=== PATIENT | female | born 1940 | race Caucasian/White ===

== ENCOUNTER 2019-09-03 07:15 | Outpatient (CLI) | payer MEDICARE, SELFPAY ==
[2019-09-03 07:51] LABS: Add Urine Microscopic? YES; Appearance Urine Sl Cloudy (Clear); Bilirubin Urine Negative (Negative); Blood Urine Negative (Negative); Color Urine Yellow (Yellow); Glucose Urine UA Negative (Negative); Ketones Urine Negative (Negative); Leukocyte Esterase Ur 1+ (Negative); Nitrate Urine Positive (Negative); Protein Urine Negative (Negative); Specific Grav Ur 1.025 (1.010-1.020); Urobilinogen Urine 0.2 mg/dL (0.2-1.0); pH Urine 5.5 (5.0-8.0)
[2019-09-03 07:55] LABS: Bacteria Urine 3+ /hpf; RBC Urine 0-2 /hpf (0-2); Squamous Epithelial Cell Urine Rare /hpf (Few)
[2019-09-03 08:04] LABS: Hemoglobin A1C 8.1 % (<5.7)
== END 2019-09-03 07:16 | disposition home or self-care (01) ==
LOC: CHSLAB 07:19
PROVIDERS: PCP Internal Medicine; Visit Provider Internal Medicine
DX: R82.81 Pyuria (principal); E11.9 Type 2 diabetes mellitus without complications
CPT/HCPCS: 36415; 81001; 83036

== ENCOUNTER 2020-02-27 08:22 | Outpatient (CLI) | payer MEDICARE, SELFPAY ==
[2020-02-27 08:38] LABS: Add Urine Microscopic? YES; Appearance Urine Clear (Clear); Basophils Absolute Auto 0.02 K/mm3 (0.00-0.10); Basophils Percent Auto 0.5 % (0.0-1.0); Bilirubin Urine Negative (Negative); Blood Urine Negative (Negative); Color Urine Yellow (Yellow); Eosinophils Absolute Auto 0.09 K/mm3 (0.02-0.50); Eosinophils Percent Auto 2.2 % (1.0-6.0); Glucose Urine UA Negative (Negative); Hematocrit 42.6 % (35.0-42.0); Hemoglobin 13.8 g/dL (11.7-13.8); Immature Granulocyte Absolute 0.02 K/mm3 (0.00-0.00); Immature Granulocyte Percent A 0.5 % (0.0-0.0); Ketones Urine Trace (Negative); Leukocyte Esterase Ur 2+ (Negative); Lymphocytes Absolute Auto 1.31 K/mm3 (1.10-4.50); Lymphocytes Percent Auto 31.8 % (18.0-42.0); Mean Corpuscular HGB Conc 32.4 g/dL (32.0-36.0); Mean Corpuscular Hemoglobin 29.6 pg (27.0-31.0); Mean Corpuscular Volume 91.2 fL (78.0-102.0); Mean Platelet Volume 9.6 fl (9.2-11.8); Monocytes Absolute Auto 0.48 K/mm3 (0.10-0.90); Monocytes Percent Auto 11.7 % (2.0-11.0); Neutrophils Absolute Auto 2.2 K/mm3 (1.7-7.2); Neutrophils Percent Auto 53.3 % (50.0-70.0); Nitrate Urine Negative (Negative); Platelet Count Result 186 K/mm3 (150-420); Protein Urine Negative (Negative); Red Blood Count 4.67 M/mm3 (4.20-5.40); Red Cell Distribution Width 11.9 % (11.6-14.4); Specific Grav Ur 1.025 (1.010-1.020); Urobilinogen Urine 0.2 mg/dL (0.2-1.0); White Blood Count 4.1 K/mm3 (4.8-10.8)
[2020-02-27 08:44] LABS: Bacteria Urine 2+ /hpf; RBC Urine 0-2 /hpf (0-2); Squamous Epithelial Cell Urine Few /hpf (Few)
[2020-02-27 08:52] LABS: MALB Creatinine Ratio 17.3 mg/g (0-30); Microalbumin Urine Random 18.1 mg/L
[2020-02-27 10:47] LABS: Alanine Aminotransferase 29 U/L (14-59); Albumin Level 4.2 g/dL (3.4-5.0); Alkaline Phosphatase 101 U/L (46-116); Anion Gap 7 mmol/L (8-16); Aspartate Amino Transferase 19 U/L (15-37); Bilirubin,Total 0.6 mg/dL (0.00-1.00); Blood Urea Nitrogen 17 mg/dL (7-18); Calcium 9.4 mg/dL (8.5-10.1); Carbon Dioxide 29 mmol/L (21-32); Chloride 101 mmol/L (98-108); Cholesterol 216 mg/dL (0-200); Estimated Glomerular Filt Rate > 60; Glucose 148 mg/dL (70-99); HDL Direct 50 mg/dL (40-60); LDL Cholesterol Calculated 148 mg/dL (<130); Osmolality Calculated 288 mOsm/kg (285-295); Potassium 4.1 mmol/L (3.5-5.1); Sodium 137 mmol/L (136-145); Total Protein 7.5 g/dL (6.4-8.2); Triglycerides 88 mg/dL (0-150)
== END 2020-02-27 08:23 | disposition home or self-care (01) ==
LOC: CHSLAB 08:24
PROVIDERS: PCP Internal Medicine; Visit Provider Internal Medicine
DX: E78.5 Hyperlipidemia, unspecified (principal); I10 Essential (primary) hypertension; E11.9 Type 2 diabetes mellitus without complications
CPT/HCPCS: 36415; 80053; 80061; 81001; 82043; 83036; 85025

== ENCOUNTER 2020-08-31 08:42 | Outpatient (CLI) | payer MEDICARE, SELFPAY ==
[2020-08-31 09:08] LABS: Basophils Absolute Auto 0.04 K/mm3 (0.00-0.10); Basophils Percent Auto 0.9 % (0.0-1.0); Eosinophils Absolute Auto 0.15 K/mm3 (0.02-0.50); Eosinophils Percent Auto 3.4 % (1.0-6.0); Hematocrit 40.8 % (35.0-42.0); Immature Granulocyte Absolute 0.01 K/mm3 (0.00-0.00); Immature Granulocyte Percent A 0.2 % (0.0-0.0); Lymphocytes Absolute Auto 1.06 K/mm3 (1.10-4.50); Lymphocytes Percent Auto 23.9 % (18.0-42.0); Mean Corpuscular HGB Conc 31.9 g/dL (32.0-36.0); Mean Corpuscular Hemoglobin 28.9 pg (27.0-31.0); Mean Corpuscular Volume 90.7 fL (78.0-102.0); Mean Platelet Volume 9.6 fl (9.2-11.8); Neutrophils Absolute Auto 2.8 K/mm3 (1.7-7.2); Neutrophils Percent Auto 62.6 % (50.0-70.0); Platelet Count Result 198 K/mm3 (150-420); Red Cell Distribution Width 11.8 % (11.6-14.4); White Blood Count 4.4 K/mm3 (4.8-10.8)
[2020-08-31 10:19] LABS: Alanine Aminotransferase 33 U/L (14-59); Albumin Level 3.9 g/dL (3.4-5.0); Alkaline Phosphatase 106 U/L (46-116); Anion Gap 6 mmol/L (8-16); Aspartate Amino Transferase 18 U/L (15-37); Bilirubin,Total 0.7 mg/dL (0.00-1.00); Blood Urea Nitrogen 20 mg/dL (7-18); Calcium 9.1 mg/dL (8.5-10.1); Carbon Dioxide 31 mmol/L (21-32); Chloride 103 mmol/L (98-108); Cholesterol 207 mg/dL (0-200); Estimated Glomerular Filt Rate 56; Glucose 166 mg/dL (70-99); HDL Direct 56 mg/dL (40-60); LDL Cholesterol Calculated 130 mg/dL (<130); Osmolality Calculated 296 mOsm/kg (285-295); Potassium 4.4 mmol/L (3.5-5.1); Sodium 140 mmol/L (136-145); Triglycerides 103 mg/dL (0-150)
== END 2020-08-31 08:43 | disposition home or self-care (01) ==
LOC: CHSLAB 08:44
PROVIDERS: PCP Internal Medicine; Visit Provider Internal Medicine
DX: E78.5 Hyperlipidemia, unspecified (principal); I10 Essential (primary) hypertension; E11.9 Type 2 diabetes mellitus without complications
CPT/HCPCS: 36415; 80053; 80061; 83036; 85025

== ENCOUNTER 2021-03-08 08:32 | Outpatient (CLI) | payer MEDICARE, SELFPAY ==
[2021-03-08 08:50] LABS: Basophils Absolute Auto 0.06 K/mm3 (0.00-0.10); Basophils Percent Auto 1.3 % (0.0-1.0); Eosinophils Absolute Auto 0.15 K/mm3 (0.02-0.50); Eosinophils Percent Auto 3.2 % (1.0-6.0); Hematocrit 40.2 % (35.0-42.0); Hemoglobin 13.1 g/dL (11.7-13.8); Immature Granulocyte Absolute 0.01 K/mm3 (0.00-0.00); Immature Granulocyte Percent A 0.2 % (0.0-0.0); Lymphocytes Absolute Auto 1.21 K/mm3 (1.10-4.50); Lymphocytes Percent Auto 26.1 % (18.0-42.0); Mean Corpuscular HGB Conc 32.6 g/dL (32.0-36.0); Mean Corpuscular Hemoglobin 29.1 pg (27.0-31.0); Mean Corpuscular Volume 89.3 fL (78.0-102.0); Mean Platelet Volume 9.6 fl (9.2-11.8); Monocytes Absolute Auto 0.54 K/mm3 (0.10-0.90); Monocytes Percent Auto 11.6 % (2.0-11.0); Neutrophils Absolute Auto 2.7 K/mm3 (1.7-7.2); Neutrophils Percent Auto 57.6 % (50.0-70.0); Platelet Count Result 177 K/mm3 (150-420); Red Cell Distribution Width 11.9 % (11.6-14.4); White Blood Count 4.6 K/mm3 (4.8-10.8)
[2021-03-08 09:14] LABS: Creatinine Urine 112.66 mg/dL (40-278); MALB Creatinine Ratio 15.9 mg/g (0-30)
[2021-03-08 09:15] LABS: Hemoglobin A1C 7.7 % (<5.7)
[2021-03-08 10:56] LABS: Alanine Aminotransferase 30 U/L (14-59); Albumin Level 3.8 g/dL (3.4-5.0); Alkaline Phosphatase 111 U/L (46-116); Anion Gap 10 mmol/L (8-16); Aspartate Amino Transferase 19 U/L (15-37); Bilirubin,Total 0.6 mg/dL (0.00-1.00); Blood Urea Nitrogen 20 mg/dL (7-18); Calcium 8.9 mg/dL (8.5-10.1); Carbon Dioxide 29 mmol/L (21-32); Chloride 101 mmol/L (98-108); Cholesterol 187 mg/dL (0-200); Estimated Glomerular Filt Rate > 60; Glucose 170 mg/dL (70-99); HDL Direct 50 mg/dL (40-60); LDL Cholesterol Calculated 115 mg/dL (<130); Osmolality Calculated 296 mOsm/kg (285-295); Potassium 4.2 mmol/L (3.5-5.1); Sodium 140 mmol/L (136-145); Triglycerides 109 mg/dL (0-150)
== END 2021-03-08 08:33 | disposition home or self-care (01) ==
LOC: CHSLAB 08:34
PROVIDERS: PCP Internal Medicine; Visit Provider Internal Medicine
DX: E11.9 Type 2 diabetes mellitus without complications (principal); I10 Essential (primary) hypertension; E78.5 Hyperlipidemia, unspecified
CPT/HCPCS: 36415; 80053; 80061; 82043; 83036; 84443; 85025

== ENCOUNTER 2021-09-13 07:12 | Outpatient (CLI) | payer MEDICARE, SELFPAY ==
[2021-09-13 07:36] LABS: Basophils Absolute Auto 0.04 K/mm3 (0.00-0.10); Eosinophils Absolute Auto 0.08 K/mm3 (0.02-0.50); Eosinophils Percent Auto 1.9 % (1.0-6.0); Hematocrit 40.6 % (35.0-42.0); Hemoglobin 12.9 g/dL (11.7-13.8); Immature Granulocyte Absolute 0.01 K/mm3 (0.00-0.00); Immature Granulocyte Percent A 0.2 % (0.0-0.0); Lymphocytes Absolute Auto 1.46 K/mm3 (1.10-4.50); Lymphocytes Percent Auto 34.7 % (18.0-42.0); Mean Corpuscular HGB Conc 31.8 g/dL (32.0-36.0); Mean Corpuscular Hemoglobin 29.2 pg (27.0-31.0); Mean Corpuscular Volume 91.9 fL (78.0-102.0); Mean Platelet Volume 9.6 fl (9.2-11.8); Monocytes Absolute Auto 0.45 K/mm3 (0.10-0.90); Monocytes Percent Auto 10.7 % (2.0-11.0); Neutrophils Absolute Auto 2.2 K/mm3 (1.7-7.2); Neutrophils Percent Auto 51.5 % (50.0-70.0); Platelet Count Result 182 K/mm3 (150-420); Red Blood Count 4.42 M/mm3 (4.20-5.40); Red Cell Distribution Width 11.9 % (11.6-14.4); White Blood Count 4.2 K/mm3 (4.8-10.8)
[2021-09-13 08:02] LABS: Hemoglobin A1C 7.9 % (<5.7)
[2021-09-13 08:11] LABS: Alanine Aminotransferase 22 U/L (14-59); Albumin Level 3.6 g/dL (3.4-5.0); Alkaline Phosphatase 96 U/L (46-116); Anion Gap 8 mmol/L (8-16); Aspartate Amino Transferase 15 U/L (15-37); Bilirubin,Total 0.6 mg/dL (0.00-1.00); Blood Urea Nitrogen 21 mg/dL (7-18); Calcium 9.2 mg/dL (8.5-10.1); Carbon Dioxide 28 mmol/L (21-32); Chloride 102 mmol/L (98-108); Cholesterol 237 mg/dL (0-200); Estimated Glomerular Filt Rate > 60; Glucose 165 mg/dL (70-99); HDL Direct 52 mg/dL (40-60); LDL Cholesterol Calculated 161 mg/dL (<130); Osmolality Calculated 293 mOsm/kg (285-295); Potassium 4.3 mmol/L (3.5-5.1); Sodium 138 mmol/L (136-145); Total Protein 6.9 g/dL (6.4-8.2); Triglycerides 120 mg/dL (0-150)
== END 2021-09-13 07:13 | disposition home or self-care (01) ==
LOC: CHSLAB 07:14
PROVIDERS: PCP Internal Medicine; Visit Provider Internal Medicine
DX: E78.5 Hyperlipidemia, unspecified (principal); I10 Essential (primary) hypertension; E11.9 Type 2 diabetes mellitus without complications
CPT/HCPCS: 36415; 80053; 80061; 83036; 85025

== ENCOUNTER 2022-03-22 07:07 | Outpatient (CLI) | payer MEDICARE, SELFPAY ==
[2022-03-22 07:27] LABS: Appearance Urine Slightly Cloudy (Clear); Bilirubin Urine Negative (Negative); Color Urine Light Yellow (Yellow); Glucose Urine UA Negative (Negative); Ketones Urine 1+ (Negative); Leukocyte Esterase Ur 2+ (Negative); Nitrate Urine Positive (Negative); Protein Urine Negative (Negative); Specific Grav Ur >= 1.030 (1.010-1.020); Urobilinogen Urine 0.2 mg/dL (0.2-1.0); pH Urine 5.5 (5.0-8.0)
[2022-03-22 07:32] LABS: Add Urine Microscopic? YES; Bacteria Urine 2+ /hpf; Blood Urine Trace-Intact (Negative); RBC Urine 0-2 /hpf (0-2); Squamous Epithelial Cell Urine Rare /hpf (Few); WBC Urine 31-50 /hpf (0-3)
[2022-03-22 07:34] LABS: Creatinine Urine 142.37 mg/dL (40-278); Microalbumin Urine Random 28.5 mg/L
[2022-03-22 07:36] LABS: Hemoglobin A1C 7.7 % (<5.7)
[2022-03-22 07:42] LABS: Alanine Aminotransferase 22 U/L (14-59); Alkaline Phosphatase 82 U/L (46-116); Anion Gap 6 mmol/L (8-16); Aspartate Amino Transferase 20 U/L (15-37); Bilirubin,Total 0.7 mg/dL (0.00-1.00); Blood Urea Nitrogen 17 mg/dL (7-18); Calcium 9.3 mg/dL (8.5-10.1); Carbon Dioxide 30 mmol/L (21-32); Chloride 102 mmol/L (98-108); Cholesterol 198 mg/dL (0-200); Estimated Glomerular Filt Rate > 60; Glucose 165 mg/dL (70-99); HDL Direct 52 mg/dL (40-60); LDL Cholesterol Calculated 120 mg/dL (<130); Osmolality Calculated 291 mOsm/kg (285-295); Potassium 4.1 mmol/L (3.5-5.1); Sodium 138 mmol/L (136-145); Total Protein 7.6 g/dL (6.4-8.2); Triglycerides 128 mg/dL (0-150)
== END 2022-03-22 07:08 | disposition home or self-care (01) ==
LOC: CHSLAB 07:10
PROVIDERS: PCP Internal Medicine; Visit Provider Internal Medicine
DX: E11.9 Type 2 diabetes mellitus without complications (principal); I10 Essential (primary) hypertension
CPT/HCPCS: 36415; 80053; 80061; 81001; 82043; 83036

== ENCOUNTER 2022-03-23 11:38 | Outpatient (CLI) | payer MEDICARE, SELFPAY ==
[2022-03-23 11:50] LABS: Appearance Urine Clear (Clear); Bilirubin Urine Negative (Negative); Blood Urine Negative (Negative); Glucose Urine UA Negative (Negative); Ketones Urine Negative (Negative); Leukocyte Esterase Ur 1+ (Negative); Nitrate Urine Negative (Negative); Protein Urine Negative (Negative); Specific Grav Ur <= 1.005 (1.010-1.020); Urobilinogen Urine 0.2 mg/dL (0.2-1.0)
[2022-03-23 12:08] LABS: Add Urine Microscopic? YES; Color Urine Light Yellow (Yellow)
[2022-03-23 12:09] LABS: Bacteria Urine Trace /hpf; RBC Urine None seen /hpf (0-2); Squamous Epithelial Cell Urine Rare /hpf (Few); WBC Urine 0-3 /hpf (0-3)
== END 2022-03-23 11:39 | disposition home or self-care (01) ==
LOC: CHSLAB 11:41
PROVIDERS: PCP Internal Medicine; Visit Provider Internal Medicine
DX: N39.0 Urinary tract infection, site not specified (principal)
CPT/HCPCS: 81001; 87086; 87088

== ENCOUNTER 2022-09-16 07:21 | Outpatient (CLI) | payer MEDICARE, SELFPAY ==
[2022-09-16 07:41] LABS: Basophils Absolute Auto 0.07 K/mm3 (0.00-0.10); Basophils Percent Auto 1.4 % (0.0-1.0); Eosinophils Absolute Auto 0.15 K/mm3 (0.02-0.50); Hematocrit 41.5 % (35.0-42.0); Hemoglobin 13.8 g/dL (11.7-13.8); Immature Granulocyte Absolute 0.01 K/mm3 (0.00-0.00); Immature Granulocyte Percent A 0.2 % (0.0-0.0); Lymphocytes Absolute Auto 1.47 K/mm3 (1.10-4.50); Lymphocytes Percent Auto 29.1 % (18.0-42.0); Mean Corpuscular HGB Conc 33.3 g/dL (32.0-36.0); Mean Corpuscular Hemoglobin 29.6 pg (27.0-31.0); Mean Corpuscular Volume 88.9 fL (78.0-102.0); Mean Platelet Volume 9.7 fl (9.2-11.8); Monocytes Absolute Auto 0.58 K/mm3 (0.10-0.90); Monocytes Percent Auto 11.5 % (2.0-11.0); Neutrophils Absolute Auto 2.8 K/mm3 (1.7-7.2); Neutrophils Percent Auto 54.8 % (50.0-70.0); Platelet Count Result 186 K/mm3 (150-420); Red Blood Count 4.67 M/mm3 (4.20-5.40); Red Cell Distribution Width 11.5 % (11.6-14.4); White Blood Count 5.1 K/mm3 (4.8-10.8)
[2022-09-16 07:43] LABS: Appearance Urine Clear (Clear); Bilirubin Urine Negative (Negative); Blood Urine Negative (Negative); Color Urine Light Yellow (Yellow); Glucose Urine UA Negative (Negative); Ketones Urine Negative (Negative); Leukocyte Esterase Ur 3+ (Negative); Nitrate Urine Positive (Negative); Protein Urine Negative (Negative); Specific Grav Ur <= 1.005 (1.010-1.020); Urobilinogen Urine 0.2 mg/dL (0.2-1.0)
[2022-09-16 07:51] LABS: Hemoglobin A1C 9.9 % (<5.7)
[2022-09-16 07:52] LABS: Add Urine Microscopic? NO; Bacteria Urine 2+ /hpf; RBC Urine None seen /hpf (0-2); Squamous Epithelial Cell Urine Few /hpf (Few); WBC Urine 21-30 /hpf (0-3)
[2022-09-16 08:02] LABS: Creatinine Urine 55.28 mg/dL (40-278); MALB Creatinine Ratio 31.8 mg/g (0-30); Microalbumin Urine Random 17.6 mg/L
[2022-09-16 08:50] LABS: Alanine Aminotransferase 30 U/L (14-59); Albumin Level 3.8 g/dL (3.4-5.0); Alkaline Phosphatase 106 U/L (46-116); Anion Gap 7 mmol/L (8-16); Aspartate Amino Transferase 25 U/L (15-37); Bilirubin,Total 0.6 mg/dL (0.00-1.00); Blood Urea Nitrogen 12 mg/dL (7-18); Calcium 9.6 mg/dL (8.5-10.1); Carbon Dioxide 32 mmol/L (21-32); Chloride 100 mmol/L (98-108); Cholesterol 189 mg/dL (0-200); Estimated Glomerular Filt Rate > 60; Glucose 212 mg/dL (70-99); HDL Direct 51 mg/dL (40-60); LDL Cholesterol Calculated 115 mg/dL (<130); Osmolality Calculated 293 mOsm/kg (285-295); Potassium 4.7 mmol/L (3.5-5.1); Sodium 139 mmol/L (136-145); Thyroid Stimulating Hormone 2.88 uIU/mL (0.36-3.74); Total Protein 7.4 g/dL (6.4-8.2); Triglycerides 117 mg/dL (0-150)
== END 2022-09-16 07:22 | disposition home or self-care (01) ==
LOC: CHSLAB 07:23
PROVIDERS: PCP Internal Medicine; Visit Provider Internal Medicine
DX: E11.9 Type 2 diabetes mellitus without complications (principal); I10 Essential (primary) hypertension; E78.5 Hyperlipidemia, unspecified
CPT/HCPCS: 36415; 80053; 80061; 81003; 82043; 83036; 84443; 85025

== ENCOUNTER 2022-12-16 07:47 | Outpatient (CLI) | payer MEDICARE, SELFPAY ==
[2022-12-16 08:33] LABS: Appearance Urine Clear (Clear); Bilirubin Urine Negative (Negative); Blood Urine Negative (Negative); Color Urine Light Yellow (Yellow); Glucose Urine UA Negative (Negative); Ketones Urine Negative (Negative); Leukocyte Esterase Ur 2+ (Negative); Nitrate Urine Negative (Negative); Protein Urine Negative (Negative); Specific Grav Ur <= 1.005 (1.010-1.020); Urobilinogen Urine 0.2 mg/dL (0.2-1.0)
[2022-12-16 08:38] LABS: Hemoglobin A1C 8.8 % (<5.7)
[2022-12-16 08:54] LABS: Add Urine Microscopic? YES; RBC Urine 0-2 /hpf (0-2); Squamous Epithelial Cell Urine Few /hpf (Few)
[2022-12-16 08:55] LABS: Bacteria Urine Trace /hpf
== END 2022-12-16 07:48 | disposition home or self-care (01) ==
LOC: CHSLAB 07:50
PROVIDERS: PCP Internal Medicine; Visit Provider Internal Medicine
DX: E11.9 Type 2 diabetes mellitus without complications (principal); R30.0 Dysuria
CPT/HCPCS: 36415; 81001; 83036; 87086; 87088

== ENCOUNTER 2023-03-17 07:40 | Outpatient (CLI) | payer MEDICARE, SELFPAY ==
[2023-03-17 08:16] LABS: Hemoglobin A1C 10.3 % (<5.7)
[2023-03-17 09:06] LABS: Alanine Aminotransferase 27 U/L (14-59); Albumin Level 3.9 g/dL (3.4-5.0); Alkaline Phosphatase 99 U/L (46-116); Anion Gap 11 mmol/L (8-16); Aspartate Amino Transferase 16 U/L (15-37); Bilirubin,Total 0.8 mg/dL (0.00-1.00); Blood Urea Nitrogen 14 mg/dL (7-18); Carbon Dioxide 27 mmol/L (21-32); Chloride 100 mmol/L (98-108); Cholesterol 216 mg/dL (0-200); Estimated Glomerular Filt Rate 58; Glucose 246 mg/dL (70-99); HDL Direct 49 mg/dL (40-60); Osmolality Calculated 294 mOsm/kg (285-295); Potassium 4.5 mmol/L (3.5-5.1); Sodium 138 mmol/L (136-145); Total Protein 7.4 g/dL (6.4-8.2)
[2023-03-17 10:01] LABS: LDL Cholesterol Calculated 137 mg/dL (<130); Triglycerides 152 mg/dL (0-150)
== END 2023-03-17 07:41 | disposition home or self-care (01) ==
LOC: CHSLAB 07:43
PROVIDERS: PCP Internal Medicine; Visit Provider Internal Medicine
DX: E11.8 Type 2 diabetes mellitus with unspecified complications (principal); E78.5 Hyperlipidemia, unspecified; I10 Essential (primary) hypertension
CPT/HCPCS: 36415; 80053; 80061; 83036

== ENCOUNTER 2023-09-14 09:06 | Outpatient (CLI) | payer MEDICARE, SELFPAY ==
[2023-09-14 09:28] LABS: Appearance Urine Clear (Clear); Basophils Absolute Auto 0.05 K/mm3 (0.00-0.10); Basophils Percent Auto 1.1 % (0.0-1.0); Bilirubin Urine Negative (Negative); Blood Urine Negative (Negative); Color Urine Light Yellow (Yellow); Eosinophils Absolute Auto 0.09 K/mm3 (0.02-0.50); Glucose Urine UA Negative (Negative); Hematocrit 41.7 % (35.0-42.0); Hemoglobin 13.6 g/dL (11.7-13.8); Immature Granulocyte Absolute 0.02 K/mm3 (0.00-0.00); Immature Granulocyte Percent A 0.4 % (0.0-0.0); Ketones Urine Negative (Negative); Leukocyte Esterase Ur 1+ (Negative); Lymphocytes Absolute Auto 1.18 K/mm3 (1.10-4.50); Mean Corpuscular HGB Conc 32.6 g/dL (32-36); Mean Corpuscular Hemoglobin 29.2 pg (27.0-31.0); Mean Corpuscular Volume 89.5 fL (78.0-102.0); Mean Platelet Volume 9.3 fl (9.2-11.8); Monocytes Absolute Auto 0.45 K/mm3 (0.10-0.90); Monocytes Percent Auto 9.9 % (2.0-11.0); Neutrophils Absolute Auto 2.75 K/mm3 (1.70-7.20); Neutrophils Percent Auto 60.6 % (50.0-70.0); Nitrate Urine Negative (Negative); Platelet Count Result 189 K/mm3 (150-420); Protein Urine Negative (Negative); Red Blood Count 4.66 M/mm3 (4.20-5.40); Red Cell Distribution Width 11.7 % (11.6-14.4); Specific Grav Ur <= 1.005 (1.010-1.020); Urobilinogen Urine 0.2 mg/dL (0.2-1.0); White Blood Count 4.5 K/mm3 (4.8-10.8)
[2023-09-14 09:38] LABS: Creatinine Urine 18.92 mg/dL (40-278); MALB Creatinine Ratio 68.7 mg/g (0-30); Microalbumin Urine Random < 13.0 mg/L
[2023-09-14 09:40] LABS: Hemoglobin A1C 8.9 % (<5.7)
[2023-09-14 10:06] LABS: Add Urine Microscopic? YES; Bacteria Urine Rare /hpf; RBC Urine None seen /hpf (0-2); Squamous Epithelial Cell Urine Few /hpf (Few)
[2023-09-14 10:40] LABS: Alanine Aminotransferase 25 U/L (14-59); Albumin Level 3.7 g/dL (3.4-5.0); Alkaline Phosphatase 93 U/L (46-116); Anion Gap 7 mmol/L (8-16); Aspartate Amino Transferase 17 U/L (15-37); Bilirubin,Total 0.5 mg/dL (0.00-1.00); Blood Urea Nitrogen 15 mg/dL (7-18); Calcium 8.9 mg/dL (8.5-10.1); Carbon Dioxide 30 mmol/L (21-32); Chloride 99 mmol/L (98-108); Cholesterol 199 mg/dL (0-200); Estimated Glomerular Filt Rate > 60; Glucose 178 mg/dL (70-99); HDL Direct 58 mg/dL (40-60); LDL Cholesterol Calculated 121 mg/dL (<130); Osmolality Calculated 286 mOsm/kg (285-295); Potassium 4.2 mmol/L (3.5-5.1); Sodium 136 mmol/L (136-145); Thyroid Stimulating Hormone 1.86 uIU/mL (0.36-3.74); Total Protein 6.9 g/dL (6.4-8.2); Triglycerides 99 mg/dL (0-150)
== END 2023-09-14 09:07 | disposition home or self-care (01) ==
LOC: CHSLAB 09:08
PROVIDERS: PCP Internal Medicine; Visit Provider Internal Medicine
DX: E11.9 Type 2 diabetes mellitus without complications (principal); E78.5 Hyperlipidemia, unspecified; I10 Essential (primary) hypertension
CPT/HCPCS: 36415; 80053; 80061; 81001; 82043; 83036; 84443; 85025

== ENCOUNTER 2024-03-15 09:06 | Outpatient (CLI) | payer MEDICARE, SELFPAY ==
[2024-03-15 09:34] LABS: Hemoglobin A1C 7.1 % (<5.7)
[2024-03-15 09:37] LABS: Creatinine Urine 135.95 mg/dL (40-278); MALB Creatinine Ratio 72.5 mg/g (0-30); Microalbumin Urine Random 98.6 mg/L
[2024-03-15 10:33] LABS: Alanine Aminotransferase 21 U/L (14-59); Albumin Level 3.5 g/dL (3.4-5.0); Alkaline Phosphatase 83 U/L (46-116); Anion Gap 3 mmol/L (4-12); Aspartate Amino Transferase 17 U/L (15-37); Bilirubin,Total 0.6 mg/dL (0.00-1.00); Blood Urea Nitrogen 21 mg/dL (7-18); Calcium 9.4 mg/dL (8.5-10.1); Carbon Dioxide 34 mmol/L (21-32); Chloride 102 mmol/L (98-108); Cholesterol 122 mg/dL (0-200); Estimated Glomerular Filt Rate 52; Free T4 Free Thyroxine 0.97 ng/dL (0.76-1.46); Glucose 173 mg/dL (70-99); HDL Direct 55 mg/dL (40-60); LDL Cholesterol Calculated 48 mg/dL (<130); Osmolality Calculated 295 mOsm/kg (285-295); Potassium 4.1 mmol/L (3.5-5.1); Sodium 139 mmol/L (136-145); Thyroid Stimulating Hormone 2.03 uIU/mL (0.36-3.74); Total Protein 6.6 g/dL (6.4-8.2); Triglycerides 94 mg/dL (0-150); Vitamin B12 406 pg/mL (193-986)
== END 2024-03-15 09:07 | disposition home or self-care (01) ==
LOC: CHSLAB 09:08
PROVIDERS: PCP Internal Medicine; Visit Provider Internal Medicine Endocrinology, Diabetes & Metabolism
DX: E78.5 Hyperlipidemia, unspecified (principal); E11.65 Type 2 diabetes mellitus with hyperglycemia; E04.1 Nontoxic single thyroid nodule; Z79.4 Long term (current) use of insulin
CPT/HCPCS: 36415; 80053; 80061; 82043; 82607; 83036; 84439; 84443

== ENCOUNTER 2024-05-01 12:33 | Outpatient (CLI) | payer MEDICARE, SELFPAY ==
--- NOTE | ~2024-05-01 | US_ITS ---
EXAMINATION: US thyroid DATE: 05/01/2024 12:56 INDICATION: Nontoxic single thyroid nodule. TECHNIQUE: Multiple ultrasound images of the thyroid were obtained. COMPARISON: Ultrasound 03/30/2016 FINDINGS: The right thyroid lobe measures 4.6 x 1.7 x 1.5 cm. The left thyroid lobe measures 5.1 x 2.2 x 2.0 c m. In the right thyroid lobe, there is an 8 mm solid, hypoechoic, wider than tall nodule with smooth margin without echogenic foci (TI-RADS TR4). In the left thyroid lobe, there is a 3.1 cm mixed cysti c and solid, hypoechoic, wider than tall nodule with ill-defined margin and punctate echogenic foci ( TR4), stable from 03/30/16. The left thyroid lobe, there is a 10 mm mixed cystic and solid, hypoechoic , wider than tall nodule with ill-defined margin without echogenic foci (TR3). IMPRESSION: 1. Thyroid nodules, likely not clinically significant. No follow-up is needed. Reviewed, dictated and finalized at location A. INAL INTELLIGENCE SPECIALIST
--- NOTE | ~2024-05-01 | DEXA_ITS ---
Bone Density Report Name: ZANE NICHOLS Age: 83 Sex: Female Ethnicity: White Date of : 1940 Indication: postmenopausal; screening for osteoporosis; height loss; hysterectomy; Referring Provider: SHERYL TORIBIO Study: Bone densitometry was performed. Exam Date: May 01, 2024 Accession number: [id number] Bone Density: Region BMD T-score Z-score Classification AP Spine(L1-L4) 0.748 -2.7 0.0 Osteoporosis Femoral Neck (Left) 0.517 -3.0 -0.6 Osteoporosis Total Hip (Left) 0.639 -2.5 -0.4 Osteoporosis Femoral Neck (Right) 0.504 -3.1 -0.7 Osteoporosis Total Hip (Right) 0.625 -2.6 -0.5 Osteoporosis Femoral Neck Mean 0.511 -3.0 -0.7 Osteoporosis Total Hip Mean 0.632 -2.5 -0.4 Osteoporosis World Health Organization criteria for BMD impression classify patients as: Normal (T-score at or above -1.0), Osteopenia (T-score between -1.0 and -2.5), or Osteoporosis (T-score at or below -2.5). 10-year Fracture Risk: FRAX not reported because: Some T-score for Spine Total or Hip Total or Femoral Neck at or below -2.5 Clinical Information Provided by Patient: Has the following medical conditions: Hysterectomy Patient maximum height was 67 Menopause Age: 38 No regular weight bearing exercise Drinks caffeinated beverages Onset of menses at age 13 Number of children 1 Impression: The patient has osteoporosis, based on the Right Femoral Neck T-score. Discussion: INCREASED RISK OF FRACTURE. BONE DENSITY IS UNDESIRABLY LOW AT ONE OR MORE SKELETAL SITES, CONSISTENT WITH POSTMENOPAUSAL OSTEOPOROSIS. This patient's lowest T-score meets the World Health Organization's (WHO) criteria for osteoporosis at one or more sites (T-score -2.5 or below). In untreated patients, the risk of osteoporotic fracture increases approximately two-fold for each 1.0 SD decrease in T-score. Low bone density is not the only risk factor for fracture; also consider factors such as patient's age, frailty or poor health, risk of falling, risk of injury, previous osteoporotic fracture, family history of osteoporosis, cigarette smoking, low body weight, etc. Not everyone with low bone mineral density has osteoporosis; osteomalacia and other metabolic bone disorders should also be considered. Patients who have osteoporosis should be evaluated for specific diseases and conditions (secondary causes) that may cause or contribute to bone loss. The Canadian Association of Clinical Endocrinologists (AACE) and National Osteoporosis Foundation (NOF) recommend pharmacologic intervention for all postmenopausal women whose T-score is in this range. The patient should follow a healthful lifestyle (good nutrition with adequate calcium and vitamin D, and appropriate weight-bearing exercise). Follow-Up: Consider a repeat BMD and Vertebral Fracture Assessment (VFA) exam in 2 years or sooner if medically necessary, to reassess this patient's status. Reported by: DANAE on 05/01/2024 1:07:00 PM. Reviewed, dictated and finalized at location A.
== END 2024-05-01 12:34 | disposition home or self-care (01) ==
LOC: CHSIMG 12:35
PROVIDERS: PCP Internal Medicine; Visit Provider Nurse Practitioner Family
DX: Z78.0 Asymptomatic menopausal state (principal); E04.1 Nontoxic single thyroid nodule; M81.0 Age-related osteoporosis without current pathological fracture
CPT/HCPCS: 76536; 77080

== ENCOUNTER 2024-05-06 09:18 | Outpatient (CLI) | payer MEDICARE, SELFPAY ==
[2024-05-06 13:41] LABS: Albumin Level 3.7 g/dL (3.4-5.0); Anion Gap 10 mmol/L (4-12); Blood Urea Nitrogen 25 mg/dL (7-18); Calcium 10.2 mg/dL (8.5-10.1); Carbon Dioxide 28 mmol/L (21-32); Chloride 102 mmol/L (98-108); Estimated Glomerular Filt Rate 60; Glucose 158 mg/dL (70-99); Osmolality Calculated 297 mOsm/kg (285-295); Potassium 4.5 mmol/L (3.5-5.1); Sodium 140 mmol/L (136-145)
[2024-05-07 14:18] LABS: Parathyroid Intact 13 pg/mL (16-77)
[2024-05-08 04:38] LABS: Vitamin D 25 Hydroxy 47 ng/mL (30-100)
== END 2024-05-06 09:19 | disposition home or self-care (01) ==
LOC: CHSLAB 09:20
PROVIDERS: PCP Internal Medicine; Visit Provider Internal Medicine Endocrinology, Diabetes & Metabolism
DX: M81.0 Age-related osteoporosis without current pathological fracture (principal)
CPT/HCPCS: 36415; 80069; 82306; 83970

== ENCOUNTER 2024-05-13 14:14 | Outpatient (CLI) | payer MEDICARE, SELFPAY ==
[2024-05-15 05:04] LABS: Protein, Total 6.7 g/dL (6.1-8.1)
[2024-05-16 13:48] LABS: Albumin 3.8 g/dL (3.8-4.8); Alpha 1 Globulin 0.3 g/dL (0.2-0.3); Alpha 2 Globulin 0.7 g/dL (0.5-0.9); Beta 1 Globulin 0.5 g/dL (0.4-0.6); Gamma Globulin 1.1 g/dL (0.8-1.7)
[2024-05-16 14:22] LABS: Kappa\\Lambda Light Chains 2.16 (0.26-1.65); Lambda Light Chain 19.3 mg/L (5.7-26.3)
== END 2024-05-13 14:15 | disposition home or self-care (01) ==
LOC: CHSLAB 14:16
PROVIDERS: PCP Internal Medicine; Visit Provider Internal Medicine Endocrinology, Diabetes & Metabolism
DX: M81.0 Age-related osteoporosis without current pathological fracture (principal); E83.52 Hypercalcemia
CPT/HCPCS: 36415; 82330; 82652; 83519; 83883; 84155; 84165; 86334

== ENCOUNTER 2024-05-15 07:06 | Outpatient (CLI) | payer MEDICARE, SELFPAY ==
[2024-05-15 07:42] LABS: Creatinine Urine 41.58 mg/dL (40-278)
[2024-05-15 07:43] LABS: Creatinine 24 Hour Urine 0.68 g/24 hr (0.60-1.80); Total Volume 24 Hour Urine 1650 ml
[2024-05-17 08:03] LABS: Creatinine, Random Urine 47; Total Prot/Creat ratio mg/mg 0.277; Total Protein/Creatinine Ratio 277
== END 2024-05-15 07:07 | disposition home or self-care (01) ==
LOC: CHSLAB 07:07
PROVIDERS: PCP Internal Medicine; Visit Provider Internal Medicine Endocrinology, Diabetes & Metabolism
DX: M81.0 Age-related osteoporosis without current pathological fracture (principal); E83.52 Hypercalcemia
CPT/HCPCS: 81050; 82340; 82570; 84156; 84166

== ENCOUNTER 2024-05-20 07:34 | Outpatient (CLI) | payer MEDICARE, SELFPAY ==
[2024-05-20 09:11] LABS: Albumin Level 3.6 g/dL (3.4-5.0); Anion Gap 12 mmol/L (4-12); Blood Urea Nitrogen 27 mg/dL (7-18); Calcium 9.8 mg/dL (8.5-10.1); Carbon Dioxide 25 mmol/L (21-32); Chloride 100 mmol/L (98-108); Estimated Glomerular Filt Rate 60; Glucose 107 mg/dL (70-99); Osmolality Calculated 289 mOsm/kg (285-295); Phosphorus 4.1 mg/dL (2.6-4.7); Sodium 137 mmol/L (136-145)
== END 2024-05-20 07:35 | disposition home or self-care (01) ==
LOC: CHSLAB 07:35
PROVIDERS: PCP Internal Medicine; Visit Provider Internal Medicine Endocrinology, Diabetes & Metabolism
DX: M81.0 Age-related osteoporosis without current pathological fracture (principal); E83.52 Hypercalcemia
CPT/HCPCS: 36415; 80069

== ENCOUNTER 2024-08-29 11:25 | Outpatient (CLI) | payer MEDICARE, SELFPAY ==
--- NOTE | ~2024-08-29 | XR_ITS ---
EXAMINATION: BONE SURVEY/METASTATIC SURVEY DATE: 08/29/2024 INDICATION: Plasma cell abnormality on blood work. TECHNIQUE: A skeletal survey was performed including AP views of the chest, abdomen and pelvis; AP an d lateral/lateral swimmers views of the cervical, thoracic and lumbar spine; lateral view of the skul l, and AP and lateral views of the appendicular skeleton excluding the hands and feet. COMPARISON: None. FINDINGS: Lungs are clear with no focal airspace opacities, pulmonary edema, pleural effusion or pneumothorax. Heart size is normal. Calcified mediastinal lymph nodes consistent with old granulomatous disease. Ag e-indeterminate mildly displaced fractures of the lateral right sixth and seventh ribs. Mild cervical , moderate thoracic and moderate to severe lumbar spondylosis. 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 No suspicious lytic or blastic bone lesions. IMPRESSION: 1. No suspicious lytic or blastic bone lesions. 2. A couple age-indeterminate mildly displaced fracture of the lateral right sixth and seventh ribs. Reviewed, dictated and finalized at location L. HYSICAL PROSPECTING SURVEYOR IMPRESSION: 1. No suspicious lytic or blastic bone lesions. 2. A couple age-indeterminate mildly displaced fracture of the lateral right si xth and seventh ribs.
[2024-08-29 11:59] LABS: Basophils Absolute Auto 0.1 K/mm3 (0.0-0.1); Basophils Percent Auto 1.4 % (0.2-1.2); Eosinophils Absolute Auto 0.1 K/mm3 (0-0.3); Eosinophils Percent Auto 2.1 % (0-4.4); Hematocrit 38.2 % (37.0-47.0); Hemoglobin 12.4 g/dL (12.0-15.0); Immature Granulocyte Absolute 0.01 K/mm3 (0.00-0.031); Immature Granulocyte Percent A 0.2 % (0-0.5); Lymphocytes Absolute Auto 1.41 K/mm3 (0.9-3.2); Lymphocytes Percent Auto 27.5 % (18.3-44.2); Mean Corpuscular HGB Conc 32.5 g/dl (32-36); Mean Corpuscular Hemoglobin 28.7 pg (26-34); Mean Corpuscular Volume 88.4 fl (80-100); Mean Platelet Volume 9.6 fl (7.4-10.4); Monocytes Absolute Auto 0.5 K/mm3 (0.1-0.6); Monocytes Percent Auto 9.6 % (2.6-8.5); Neutrophils Percent Auto 59.2 % (45.5-73.1); Platelet Count Result 182 k/mm3 (150-375); Red Blood Count 4.32 M/mm3 (4.2-5.4); Red Cell Distribution Width 12.2 % (11.5-14.5); White Blood Count 5.1 K/mm3 (4.5-10.0)
[2024-08-29 13:07] LABS: Alanine Aminotransferase 21 U/L (6-35); Albumin Level 4.6 g/dL (3.5-5.1); Alkaline Phosphatase 82 U/L (38-126); Anion Gap 11 mmol/L (4-12); Aspartate Amino Transferase 29 U/L (14-36); Bilirubin,Total 0.9 mg/dL (0.2-1.3); Blood Urea Nitrogen 18 mg/dL (7-17); Calcium 10.4 mg/dL (8.4-10.2); Carbon Dioxide 29 mmol/L (22-30); Chloride 100 mmol/L (98-107); Estimated Glomerular Filt Rate > 60; Glucose 128 mg/dL (65-110); Potassium 4.2 mmol/L (3.4-5.0); Sodium 140 mmol/L (137-145)
--- OUTSIDE RECORDS SUMMARY | 2024-08-29 13:09 | XMS_ITS | Referral Summary ---
Author Organization [facility] Address [address] [place] [address] Care Team Providers Care Pathology Laboratory Aide Name Role Phone Herb Ferreira PT Unavailable Jonathana Abdi Acosta MD Primary Care Provider [phone] Allergies Active Allergy Reactions Criticality Noted Date Comments Codeine Fatigue Low 06/16/2010 Medications pravastatin (PRAVACHOL) 20 mg tablet 8 Active triamterene-hyd roCHLOROthiazid e (MAXZIDE,DYAZID E) 75-50 mg per tablet Active cetirizine (ZyrTEC) 10 mg tablet Active HYDROcodone-breanna taminophen (NORCO) 5-325 mg per tabletIndicatio ns:Pain Take 1 tablet by mouth every 6 (six) hours as needed for pain. 12 tablet 8 Active Additional Information Patient not taking.Reported on 04/05/2018 ONETOUCH ULTRA BLUE TEST STRIP strip TEST TWICE DAILY 5 8 Active ONETOUCH DELICA LANCETS 33 gauge misc USE TO TEST TWICE A DAY 0 8 Active losartan-hydroC HLOROthiazide (HYZAAR) 100-12.5 mg per tablet Take 1 tablet by mouth daily. 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 Gender Identity Not on file Sexual Orientation Not on file Last Filed Vital Signs Vital Sign Reading Time Taken Comments Blood Pressure 133/86 04/05/2018 8:55 AM CDT Pulse 100 04/05/2018 8:55 AM CDT Temperature 37 C (98.6 F) 01/23/2018 5:17 PM CDT Respiratory Rate 18 01/23/2018 5:17 PM CDT Oxygen Saturation 100% 01/23/2018 5:17 PM CDT Inhaled Oxygen Concentration - - Weight 73.9 kg (163 lb) 04/05/2018 8:55 AM CDT Height 170.2 cm (5' 7 ) 04/05/2018 8:55 AM CDT Body Mass Index 25.53 04/05/2018 8:55 AM CDT Plan of Treatment Not on file Insurance T MEDICARE [facility] INSURANCE MEDICARE AETNA SENIOR SUPPLEMENT MEDICARE AETNA SENIOR SUPPLEMENT [place] [address] Care Teams Pathology Laboratory Aide Relationship Specialty Start Date End Date Abdi Healy MD PCP - General Internal Medicine 09/29/22 Herb Ferreira, PT Physical Therapist Physical Therapy 03/12/18
--- OUTSIDE RECORDS SUMMARY | 2024-08-29 13:09 | XMS_ITS | Clinical Summary ---
Author Organization [facility] Evan palencia [address] Address [address] [address] Care Team Providers Care Natural Resource Manager Name Role Phone Unavailable Primary Care Provider Unavailabl e Allergies No known active allergies Medications irbesartan-hydr oCHLOROthiazide (AVALIDE) 150-12.5 mg tablet Take 0.5 Tablets by mouth daily. Active rosuvastatin (CRESTOR) 40 mg tablet Take 40 mg by mouth daily. Active metFORMIN (GLUCOPHAGE XR) 500 mg Extended Release 24 hour tablet Take 500 mg by mouth 2 times daily with meals. Active CALCIUM CARBONATE ORAL Take by mouth daily. Active APPLE CIDER VINEGAR ORAL Take by mouth daily. Active BORON ORAL Take by mouth daily. Active OTHER Take by mouth daily. Congaplex Thymus Gland Support Supplement Immune Health with Calcium Lactate, Magnesium, Vitamin C & Vitamin A - Immune System Aid with Mushroom Powder Active Active Problems No known active problems Encounters Date Type Department Care Team Description 08/29/2024 10:30 AM MOLDED GRID AND PARTS INSPECTOR Office Visit [facility] Oncology and Hematology [facility] [address] [place] [address] Bobby Cartwright MD Plasma cell disorder (Primary Dx) 08/29/2024 Abstract [facility] Oncology and Hematology [place] [address] [place] [address] Bobby Cartwright MD from Last 3 Months Family History Medical History Relation Name Comments No Known Problems Brother 1 No Known Problems Brother 2 No Known Problems Child No Known Problems Father Diabetes Mother Diabetes Sister 1 Diabetes Sister 2 Relation Name Status Comments Brother 1 Brother 2 Alive Child Alive Father Mother Sister 1 Alive Sister 2 Alive Social History Tobacco Use Types Packs/Day Years Used Date Smoking Tobacco: Never Smokeless Tobacco: Never Alcohol Use Standard Drinks/Week Comments Yes 0 (1 standard drink = 0.6 oz pur e alcohol) Occasionally Comments Unknown Sex and Gender Information Value Date Recorded Sex Assigned at Not on file Legal Sex Female 12:23 PM MOLDED GRID AND PARTS INSPECTOR Gender Identity Not on file Sexual Orientation Not on file Last Filed Vital Signs Vital Sign Reading Time Taken Comments Blood Pressure 158/84 08/29/2024 10:21 AM MOLDED GRID AND PARTS INSPECTOR Pulse 104 08/29/2024 10:21 AM MOLDED GRID AND PARTS INSPECTOR Temperature 36 C (96.8 F) 08/29/2024 10:21 AM MOLDED GRID AND PARTS INSPECTOR Respiratory Rate 16 08/29/2024 10:21 AM MOLDED GRID AND PARTS INSPECTOR Oxygen Saturation 97% 08/29/2024 10:21 AM MOLDED GRID AND PARTS INSPECTOR Inhaled Oxygen Concentration - - Weight 57.4 kg (126 lb 9.6 oz) 08/29/2024 10:21 AM MOLDED GRID AND PARTS INSPECTOR Height 167.6 cm (5' 6 ) 08/29/2024 10:21 AM MOLDED GRID AND PARTS INSPECTOR Body Mass Index 20.43 08/29/2024 10:21 AM MOLDED GRID AND PARTS INSPECTOR Plan of Treatment Upcoming Encounters Date Type Department Care Team (Late st Contact Info) Description 09/12/2024 4:05 PM CDT Telephone Check Up [facility] Oncology and Hematology - [place] [address] [place] [address] [facility] [address] [place] [address] [place] [address] [place] [address] [address] [place] [address] Health Maintenance Due Date Last Done Comments DTAP/TDAP/TD VACCINES (1 - Tdap) 1961 PNEUMOCOCCAL VACCINE 50+ YEARS (1 of 1 - PCV) 12/19/18 93 ZOSTER VACCINE (1 of 2) 1992 OSTEOPOROSIS SCREENING 12/20/2007 RSV VACCINE (60+ or ) (1 - 1-dose 75+ series) 2017 INFLUENZA VACCINE (#1) 2024 Medicare Advantage (SD) Prev entative Visit/Annual Wellness Visit 06/26/2024 Insurance AETNA O MCR
--- OUTSIDE RECORDS SUMMARY | 2024-08-29 13:09 | XMS_ITS | Clinical Summary ---
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 Mammogram abnormal - (Add ed by TW Conv) Hypercholesteremia Hypertension Family History Medical History Relation Name Comments Diabetes Other Hypertension Other Relation Name Status Comments Other Social History Tobacco Use Types Packs/Day Years Used Date Smoking Tobacco: Never Smokeless Tobacco: Never Comments Unknown Sex and Gender Information Value Date Recorded Sex Assigned at Not on file 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 Gender Identity Not on file Sexual Orientation Not on file Obstetrics History Last Filed Vital Signs Vital Sign Reading [...] 04/05/2018 8:55 AM CDT Plan of Treatment Health Maintenance Due Date Last Done Comments Depression Screening 1940 Fall Risk Assessment 1940 Osteoporosis Screening-Bone Density Scan 1940 DTaP/Tdap/Td Vaccine (1 - Tdap) 1953 Hepatitis B Screening 1960 Pneumococcal vaccine 65+ (1 of 1 - PCV) 1992 Zoster Vaccine (1 of 2) 1992 Well Visit 65+ 12/20/2007 Influenza Vaccine (#1) 2024 Insurance AETNA MEDICARE [facility] INSURANCE MEDICARE [facility] MEDICARE AETNA SENIOR SUPPLEMENT MEDICARE AETNA Care Teams Credit Administrator Relationship Specialty Start Date End Date Abdi Healy MD PCP - General Internal Medicine 09/29/22 Herb Ferreira, PT Physical Therapist Physical Therapy 03/12/18
--- OUTSIDE RECORDS SUMMARY | 2024-08-29 13:09 | XMS_ITS | Encounter Summary ---
Author Organization [facility] EMILIANO Berrios [facility] Address [address] [place] [address] Care Team Prov[address] Care [address] Sql Programmer Name Role Phone Unavailable Primary Care Provider Unavailabl e Reason for Referral * Radiology Services (Routine) - Authorized Specialty Diagnoses / Procedures Referred By Contac t Referred To Contact Diagnoses Plasma cell disorder Procedures XR BONE SURVEY COMPLETE Bobby Cartwright MD [address] [facility] [address] [address] [place] [phone] Phone: tel: fax: Referral ID Status Reason Start Date Expiration Date V isits Requested Visits Authorized [id number] Authorized 08/29/2024 09/29/2025 1 1 EYOR OIL WELL DIRECTIONAL Encounter Details Date Type Department Care Team (Late st Contact Info) Description 08/29/2024 10:30 AM SURVEYOR OIL WELL DIRECTIONAL Office Visit [facility] Oncology and Hematology - [place] [address] [place] [address] [facility] [address] [place] [address] Bobby Cartwright MD [facility] [employer] [address] [place] [phone] Plasma cell disorder (Primary Dx) Social History Tobacco Use Types Packs/Day Years Used Date Smoking Tobacco: Never Smokeless Tobacco: Never Alcohol Use Standard Drinks/Week Comments Yes 0 (1 standard drink = 0.6 oz pur e alcohol) Occasionally Comments Unknown Sex and Gender Information Value Date Recorded Sex Assigned at Not on file Legal Sex Female 12:23 PM SURVEYOR OIL WELL DIRECTIONAL Gender Identity Not on file Sexual Orientation Not on file documented as of this encounter Last Filed Vital Signs Vital Sign Reading Time Taken Comments Blood Pressure 158/84 08/29/2024 10:21 AM SURVEYOR OIL WELL DIRECTIONAL Pulse 104 08/29/2024 10:21 AM SURVEYOR OIL WELL DIRECTIONAL Temperature 36 C (96.8 F) 08/29/2024 10:21 AM SURVEYOR OIL WELL DIRECTIONAL Respiratory Rate 16 08/29/2024 10:21 AM SURVEYOR OIL WELL DIRECTIONAL Oxygen Saturation 97% 08/29/2024 10:21 AM SURVEYOR OIL WELL DIRECTIONAL Inhaled Oxygen Concentration - - Weight 57.4 kg (126 lb 9.6 oz) 08/29/2024 10:21 AM SURVEYOR OIL WELL DIRECTIONAL Height 167.6 cm (5' 6 ) 08/29/2024 10:21 AM SURVEYOR OIL WELL DIRECTIONAL Body Mass Index 20.43 08/29/2024 10:21 AM SURVEYOR OIL WELL DIRECTIONAL documented in this encounter Plan of Treatment Upcoming Encounters Date Type Department Care Team (Late st Contact Info) Description 09/12/2024 4:05 PM CDT Telephone Check Up [facility] Oncology and Hematology - [place] [address] [facility] [address] [place] [address] Bobby Cartwright MD [address] [facility] [address] [place] [address] Scheduled Orders Name Type Priority Associated Diagnoses Orde r Schedule CBC WITH DIFFERENTIAL Lab Stat Plasma cell disorder Expected: 08/29/2024, Expires: 08/29/2025 COMPREHENSIVE METABOLIC PANEL Lab Stat Plasma cell disorder Expected: 08/29/2024, Expires: 08/29/2025 IMMUNOGLOBULINS IGG IGA IGM Lab Routine Plasma cell disorder Expected: 08/29/2024, Expires: 08/29/2025 KAPPA/LAMBDA, FREE LIGHT CHAINS Lab Routine Plasma cell disorder Expected: 08/29/2024, Expires: 08/29/2025 PROTEIN ELECTROPHORESIS W/REFLEX,SERUM Lab Routine Plasma cell disorder Expected: 08/29/2024, Expires: 08/29/2025 XR BONE SURVEY COMPLETE Imaging Routine Plasma cell disorder 1 Occurrences starting 08/29/2024 until 08/29/2025 documented as of this encounter Visit Diagnoses Diagnosis Plasma cell disorder- Primary Other specified disease of white blood cells documented in this encounter
--- OUTSIDE RECORDS SUMMARY | 2024-08-29 13:09 | XMS_ITS | Encounter Summary ---
Author Organization [facility] EMILIANO Berrios [employer] Address [address] [place] [address] Care Team Providers Care Ladies Attendant Name Role Phone Unavailable Primary Care Provider Unavailabl e Encounter Details Date Type Department Care Team (Late Contact Info) Description 08/29/2024 Abstract [facility] Oncology and Hematology - [place] [address] [place] [address] Bobby Cartwright MD [address] [place] [address] [employer] [address] [place] [address] Social History Tobacco Use Types Packs/Day Years Used Date Smoking Tobacco: Never Smokeless Tobacco: Never Alcohol Use Standard Drinks/Week Comments Yes 0 (1 standard drink = 0.6 oz pur e alcohol) Occasionally Comments Unknown Sex and Gender Information Value Date Recorded Sex Assigned at Not on file Legal Sex Female 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
--- OUTSIDE RECORDS SUMMARY | 2024-08-29 13:09 | XMS_ITS | Clinical Summary ---
Author Organization [facility] Address [facility] [place] [address] Care Team Providers Care Emu Farm Worker Name Role Phone Abdi Healy MD Primary Care Provider [phone] Rustam Bustillo MD Unavailable [phone] Allergies Active Allergy Reactions Criticality Noted Date Comments Codeine Fatigue Low 06/16/2010 Medications irbesartan-hydr ochlorothiazide (AVALIDE) 150-12.5 MG Tab Take 0.5 tablets by mouth daily. 01/02/2024 Active metFORMIN ER (GLUCOPHAGE-XR) 500 MG 24 hr tablet Take 2 tablets (1,000 mg total) by mouth daily. 01/26/2024 Active rosuvastatin (CRESTOR) 40 MG tablet Take 1 tablet (40 mg total) by mouth daily. 01/27/2024 Active Active Problems Problem Noted Date Diagnosed Date Abscess, gluteal, right 02/28/2024 Family History Medical History Relation Comments Diabetes Brother Diabetes Father Early Father Vehicle accident 1989 Diabetes Mother Early Mother Vehicle accident 1989 Diabetes Sister 1 Diabetes Sister 2 Relation Status Comments Brother Father Mother Sister 1 Sister 2 Social History Tobacco Use Types Packs/Day Years Used Date Smoking Tobacco: Never Passive Smoke Exposure: Never Smokeless Tobacco: Never Tobacco Cessation:Counseling Given: No Alcohol Use Standard Drinks/Week Comments Not Currently 0 (1 standard drink = 0.6 oz pure alcohol) Only socially, maybe 2 to 3 a year Comments No Sex and Gender Information Value Date Recorded Sex Assigned at Not on file Legal Sex Female 9:25 PM CDT Gender Identity Female 02/08/2024 8:15 AM CDT Sexual Orientation Not on file Last Filed Vital Signs Vital Sign Reading Time Taken Comments Blood Pressure 147/79 02/29/2024 9:47 AM CDT Pulse 95 02/29/2024 9:47 AM CDT Temperature 37.1 C (98.8 F) 02/29/2024 9:27 AM CDT Respiratory Rate 16 02/29/2024 9:47 AM CDT Oxygen Saturation 98% 02/29/2024 9:47 AM CDT Inhaled Oxygen Concentration - - Weight 60.8 kg (134 lb) 02/29/2024 7:23 AM CDT Height 170.2 cm (5' 7 ) 02/29/2024 7:23 AM CDT Body Mass Index 20.99 02/29/2024 7:23 AM CDT Plan of Treatment Health Maintenance Due Date Last Done Comments PHQ-2 (Physician Shelby) 1954 DTaP, Tdap and Td Vaccines ( 1 - Tdap) 1961 Zoster Vaccines (1 of 2) 1992 Annual Medicare Wellness Visit 12/20/2007 Dexa Scan (General) 12/20/2007 Pneumococcal Vaccine: 65+ Ye ars (1 of 1 - PCV) 12/20/2007 RSV Immunization or 60+ Years (1 - 1-dose 75+ series) 2017 COVID-19 Vaccine (1 - 2023-2 5 season) 2024 Influenza Adult (#1) 2024 PHQ-2 (Physician Shelby) 06/26/2024 Meningococcal B Vaccine Aged Out No l onger eligible based on patient's age to complete this topic Meningococcal Vaccine Aged Out No vincent chinyere eligible based on patient's age to complete this topic RSV Immunizations Under 20 Months Aged Out No longer eligible based on patient's age to complete this topic Insurance MEDICARE AETNA Care Teams Emu Farm Worker Relationship Specialty Start Date End Date Abdi Healy MD [address] [place] [id number] PCP - General INTERNAL MEDICINE 02/09/24 Rustam Bustillo MD [address] [place] [address] [place] [address] Consulting Physician SURGERY 02/19/24 02/18/25
[2024-08-29 13:10] LABS: Immunoglobulin A 343 mg/dL (70-400); Immunoglobulin G 1190 mg/dL (700-1600); Immunoglobulin M 93 mg/dL (40-230)
[2024-08-30 09:14] LABS: Protein, Total 7.1 g/dL (6.1-8.1)
[2024-08-31 10:40] LABS: Albumin 4.2 g/dL (3.8-4.8); Alpha 1 Globulin 0.3 g/dL (0.2-0.3); Alpha 2 Globulin 0.7 g/dL (0.5-0.9); Beta 1 Globulin 0.5 g/dL (0.4-0.6); Gamma Globulin 1.2 g/dL (0.8-1.7)
[2024-09-02 14:39] LABS: Kappa\\Lambda Light Chains 1.97 (0.26-1.65); Lambda Light Chain 18.3 mg/L (5.7-26.3)
== END 2024-08-29 11:26 | disposition home or self-care (01) ==
PROVIDERS: PCP Internal Medicine; Visit Provider Internal Medicine Hematology & Oncology
DX: D72.9 Disorder of white blood cells, unspecified (principal); S22.41XA Multiple fractures of ribs, right side, initial encounter for closed fracture; X58.XXXA Exposure to other specified factors, initial encounter
CPT/HCPCS: 36415; 77075; 80053; 82784; 83883; 84155; 84165; 85025

== ENCOUNTER 2024-09-13 08:33 | Outpatient (CLI) | payer MEDICARE, SELFPAY ==
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
--- OUTSIDE RECORDS SUMMARY | 2024-09-13 09:06 | XMS_ITS | Clinical Summary ---
Author Organization [facility] Evan palencia Humberto Address [address] [place] [address] Care Team Providers Care Water Maintenance Supervisor Name Role Phone Unavailable Primary Care Provider [...] Encounters Date Type Department Care Team Description 09/12/2024 4:05 PM CDT Telephone Check Up [facility] Oncology and Hematology - [place] [address] [place] [address] Bobby Cartwright MD Plasma cell disorder (Primary Dx) 09/11/2024 External Device Data STL ABSTRACTION Provider, Abstract 09/04/2024 External Device Data STL ABSTRACTION Provider, Abstract 09/03/2024 External Device Data STL ABSTRACTION Provider, Abstract 09/03/2024 Orders Only [facility] Oncology and Hematology - [place] [address] [place] [address] Bobby Cartwright MD 09/02/2024 External Device Data STL ABSTRACTION Provider, Abstract 09/02/2024 Orders Only [facility] Oncology and Hematology - [place] [address] [place] [address] Bobby Cartwright MD 08/31/2024 External Device Data STL ABSTRACTION Provider, Abstract 08/30/2024 External Device Data STL ABSTRACTION Provider, Abstract 08/30/2024 Orders Only [facility] Oncology and Hematology - [place] [address] [place] [address] Bobby Cartwright MD 08/29/2024 10:30 AM ENTRY LEVEL ACCOUNTANT Office Visit [facility] Oncology and Hematology - [place] [address] [place] [address] Bobby Cartwright MD Plasma cell disorder (Primary Dx) 08/29/2024 Abstract [facility] Oncology and Hematology - [place] [address] [place] [address] Bobby Cartwright MD from Last 3 Months [...] on file Legal Sex Female 12:23 PM ENTRY LEVEL ACCOUNTANT Gender Identity Not on file Sexual Orientation Not on file Last Filed Vital Signs Vital Sign Reading Time Taken Comments Blood Pressure 158/84 08/29/2024 10:21 AM ENTRY LEVEL ACCOUNTANT Pulse 104 08/29/2024 10:21 AM ENTRY LEVEL ACCOUNTANT Temperature 36 C (96.8 F) 08/29/2024 10:21 AM ENTRY LEVEL ACCOUNTANT Respiratory Rate 16 08/29/2024 10:21 AM ENTRY LEVEL ACCOUNTANT Oxygen Saturation 97% 08/29/2024 10:21 AM ENTRY LEVEL ACCOUNTANT Inhaled Oxygen Concentration - - Weight 57.4 kg (126 lb 9.6 oz) 08/29/2024 10:21 AM ENTRY LEVEL ACCOUNTANT Height 167.6 cm (5' 6 ) 08/29/2024 10:21 AM ENTRY LEVEL ACCOUNTANT Body Mass Index 20.43 08/29/2024 10:21 AM ENTRY LEVEL ACCOUNTANT Plan of Treatment Upcoming Encounters Date Type Department Care Team (Late st Contact Info) Description 03/20/2025 11:30 AM CDT Office Visit [facility] Oncology and Hematology - [place] [address] [facility] [address] [place] [address] Bobby Cartwright MD [address] [facility] [address] [place] [address] Health Maintenance Due Date Last Done Comments DTAP/TDAP/TD VACCINES (1 - Tdap) 1961 PNEUMOCOCCAL VACCINE 50+ YEARS (1 of 1 - PCV) 12/19/18 93 ZOSTER VACCINE (1 of 2) 1992 OSTEOPOROSIS SCREENING 12/20/2007 RSV VACCINE (60+ or ) (1 - 1-dose 75+ series) 2017 INFLUENZA VACCINE (#1) 2024 Medicare Advantage (ID) Prev entative Visit/Annual Wellness Visit 06/26/2024 Procedures Procedure Name Priority Date/Time Associated Diagnosis Comments PROTEIN ELECTROPHORESIS, CSF Routine 08/29/2024 11:41 AM ENTRY LEVEL ACCOUNTANT KAPPA/LAMBDA LIGHT CHAINS Routine 2024 10:33 AM ENTRY LEVEL ACCOUNTANT COMPREHENSIVE METABOLIC PANEL Routine 08/29/2024 9:23 AM ENTRY LEVEL ACCOUNTANT XR BONE SURVEY COMPLETE Routine 08/30/19 25 8:28 AM ENTRY LEVEL ACCOUNTANT from Last 3 Months Results * PROTEIN ELECTROPHORESIS, CSF (08/29/2024 11:41 AM ENTRY LEVEL ACCOUNTANT) Cerebrospinal fluid CEREBROSPINAL FLUID / Unknown us Bobby Cartwright MD BODY FLUIDS AND STOOLS Final Re sult * KAPPA/LAMBDA, FREE LIGHT CHAINS (08/29/2024 10:33 AM ENTRY LEVEL ACCOUNTANT) Blood us Bobby Cartwright MD CHEMISTRY ORDERABLES Final Resu lt * COMPREHENSIVE METABOLIC PANEL (08/29/2024 9:23 AM ENTRY LEVEL ACCOUNTANT) Blood us Bobby Cartwright MD CHEMISTRY ORDERABLES Final Resu lt * XR BONE SURVEY COMPLETE (08/29/2024 8:28 AM ENTRY LEVEL ACCOUNTANT) Anatomical Region Laterality Modality Other us Bobby Cartwright MD DIAGNOSTIC IMAGING ORDERABLES F inal Result from Last [address] [place] [address] [place] [id number]
--- OUTSIDE RECORDS SUMMARY | 2024-09-13 09:06 | XMS_ITS | Referral Summary ---
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
--- OUTSIDE RECORDS SUMMARY | 2024-09-13 09:06 | XMS_ITS | Encounter Summary ---
Author Organization [facility] Address [address] [place] [address] Care Team Providers Care Sweet Potato Disintegrator Name Role Phone Unavailable Primary Care Provider Unavailabl e Encounter Details Date Type Department Care Team (Late st Contact Info) Description 09/11/2024 External Device Data STL ABSTRACTION Provider, Abstract NO ADDRESS ON FILE Social History Tobacco Use Types Packs/Day Years Used Date Smoking Tobacco: Never Smokeless Tobacco: Never Alcohol Use Standard Drinks/Week Comments Yes 0 (1 standard drink = 0.6 oz pur e alcohol) Occasionally Comments Unknown Sex and Gender Information Value Date Recorded Sex Assigned at Not on file Legal Sex Female 12:23 PM CAROUSEL 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
--- OUTSIDE RECORDS SUMMARY | 2024-09-13 09:06 | XMS_ITS | Clinical Summary ---
Author Organization [facility] Address [address] [place] [address] Care Team Providers Care Consumer Sales Representative Name Role Phone Herb Ferreira PT Unavailable Unavaila Abdi Acosta MD Primary Care Provider [phone] Allergies Active Allergy Reactions Criticality Noted Date [...] on file Legal Sex Female 10:59 PM HRIS DEVELOPER Gender Identity Not on file Sexual Orientation [...] Influenza Vaccine (#1) 2024 Insurance [employer] MEDICARE [facility] INSURANCE MEDICARE [facility] MEDICARE AET[employer] SENIOR SUPPLEMENT MEDICARE [employer] Care Teams Consumer Sales Representative Relationship Specialty Start Date End Date Abdi Healy MD PCP - General Internal Medicine 09/29/22 Herb Ferreira, PT Physical Therapist Physical Therapy 03/12/18
[2024-09-13 09:15] LABS: Basophils Absolute Auto 0.05 K/mm3 (0.00-0.10); Eosinophils Absolute Auto 0.18 K/mm3 (0.02-0.50); Eosinophils Percent Auto 3.5 % (1.0-6.0); Hematocrit 39.3 % (35.0-42.0); Hemoglobin 12.4 g/dL (11.7-13.8); Immature Granulocyte Absolute 0.01 K/mm3 (0.00-0.00); Immature Granulocyte Percent A 0.2 % (0.0-0.0); Lymphocytes Absolute Auto 1.78 K/mm3 (1.10-4.50); Lymphocytes Percent Auto 34.6 % (18.0-42.0); Mean Corpuscular HGB Conc 31.6 g/dL (32-36); Mean Corpuscular Hemoglobin 28.4 pg (27.0-31.0); Mean Corpuscular Volume 89.9 fL (78.0-102.0); Mean Platelet Volume 9.5 fl (9.2-11.8); Monocytes Absolute Auto 0.52 K/mm3 (0.10-0.90); Monocytes Percent Auto 10.1 % (2.0-11.0); Neutrophils Absolute Auto 2.61 K/mm3 (1.70-7.20); Neutrophils Percent Auto 50.6 % (50.0-70.0); Platelet Count Result 204 K/mm3 (150-420); Red Blood Count 4.37 M/mm3 (4.20-5.40); Red Cell Distribution Width 11.8 % (11.6-14.4); White Blood Count 5.2 K/mm3 (4.8-10.8)
[2024-09-13 09:16] LABS: Add Urine Microscopic? YES; Appearance Urine Clear (Clear); Bilirubin Urine Negative (Negative); Blood Urine Negative (Negative); Color Urine Light Yellow (Yellow); Glucose Urine UA Negative (Negative); Ketones Urine Negative (Negative); Leukocyte Esterase Ur 3+ (Negative); Nitrate Urine Negative (Negative); Protein Urine Trace (Negative); Urobilinogen Urine 0.2 mg/dL (0.2-1.0)
[2024-09-13 09:24] LABS: Bacteria Urine 1+ /hpf; Squamous Epithelial Cell Urine Few /hpf (Few); WBC Urine 21-30 /hpf (0-3)
[2024-09-13 10:14] LABS: Creatinine Urine 88.11 mg/dL (40-278); MALB Creatinine Ratio 83.1 mg/g (0-30); Microalbumin Urine Random 73.3 mg/L
[2024-09-13 10:18] LABS: Alanine Aminotransferase 18 U/L (14-59); Alkaline Phosphatase 95 U/L (46-116); Anion Gap 6 mmol/L (4-12); Aspartate Amino Transferase 14 U/L (15-37); Bilirubin,Total 0.6 mg/dL (0.00-1.00); Blood Urea Nitrogen 17 mg/dL (7-18); Carbon Dioxide 32 mmol/L (21-32); Chloride 103 mmol/L (98-108); Cholesterol 117 mg/dL (0-200); Estimated Glomerular Filt Rate > 60; Glucose 151 mg/dL (70-99); HDL Direct 59 mg/dL (40-60); LDL Cholesterol Calculated 42 mg/dL (<130); Osmolality Calculated 296 mOsm/kg (285-295); Potassium 4.3 mmol/L (3.5-5.1); Sodium 141 mmol/L (136-145); Thyroid Stimulating Hormone 1.53 uIU/mL (0.36-3.74); Total Protein 7.5 g/dL (6.4-8.2); Triglycerides 79 mg/dL (0-150)
== END 2024-09-13 08:34 | disposition home or self-care (01) ==
PROVIDERS: PCP Internal Medicine; Visit Provider Internal Medicine
DX: I10 Essential (primary) hypertension (principal); E78.5 Hyperlipidemia, unspecified
CPT/HCPCS: 36415; 80053; 80061; 81001; 82043; 84443; 85025

== ENCOUNTER 2024-12-13 08:35 | Outpatient (CLI) | payer MEDICARE, SELFPAY ==
[2024-12-13 09:13] LABS: Basophils Absolute Auto 0.05 K/mm3 (0.00-0.10); Basophils Percent Auto 1.1 % (0.0-1.0); Eosinophils Absolute Auto 0.12 K/mm3 (0.02-0.50); Eosinophils Percent Auto 2.7 % (1.0-6.0); Hematocrit 39.9 % (35.0-42.0); Hemoglobin 12.7 g/dL (11.7-13.8); Immature Granulocyte Absolute 0.01 K/mm3 (0.00-0.00); Immature Granulocyte Percent A 0.2 % (0.0-0.0); Lymphocytes Absolute Auto 1.29 K/mm3 (1.10-4.50); Mean Corpuscular HGB Conc 31.8 g/dL (32-36); Mean Corpuscular Hemoglobin 28.3 pg (27.0-31.0); Mean Corpuscular Volume 88.9 fL (78.0-102.0); Mean Platelet Volume 9.9 fl (9.2-11.8); Monocytes Absolute Auto 0.52 K/mm3 (0.10-0.90); Monocytes Percent Auto 11.7 % (2.0-11.0); Neutrophils Absolute Auto 2.46 K/mm3 (1.70-7.20); Neutrophils Percent Auto 55.3 % (50.0-70.0); Platelet Count Result 178 K/mm3 (150-420); Red Blood Count 4.49 M/mm3 (4.20-5.40); Red Cell Distribution Width 12.5 % (11.6-14.4); White Blood Count 4.5 K/mm3 (4.8-10.8)
[2024-12-13 09:59] LABS: Alanine Aminotransferase 21 U/L (6-35); Albumin Level 4.3 g/dL (3.5-5.1); Alkaline Phosphatase 74 U/L (38-126); Anion Gap 4 mmol/L (4-12); Aspartate Amino Transferase 31 U/L (14-36); Bilirubin,Total 0.9 mg/dL (0.2-1.3); Blood Urea Nitrogen 19 mg/dL (7-17); Calcium 9.2 mg/dL (8.4-10.2); Carbon Dioxide 30 mmol/L (22-30); Chloride 105 mmol/L (98-107); Cholesterol 128 mg/dL (0-200); Estimated Glomerular Filt Rate > 60; Glucose 145 mg/dL (65-110); HDL Direct 57 mg/dL; LDL Cholesterol Calculated 55 mg/dL (<130); Osmolality Calculated 293 mOsm/kg (285-295); Potassium 4.5 mmol/L (3.4-5.0); Sodium 139 mmol/L (137-145); Total Protein 7.1 g/dL (6.3-8.2); Triglycerides 82 mg/dL (<150)
== END 2024-12-13 08:36 | disposition home or self-care (01) ==
PROVIDERS: PCP Internal Medicine; Visit Provider Internal Medicine
DX: E11.9 Type 2 diabetes mellitus without complications (principal); I10 Essential (primary) hypertension
CPT/HCPCS: 36415; 80053; 80061; 83036; 85025

== ENCOUNTER 2025-05-20 10:42 | Outpatient (CLI) | payer MEDICARE, SELFPAY ==
[2025-05-20 10:58] LABS: Hematocrit 37.2 % (35.0-42.0); Hemoglobin 11.8 g/dL (11.7-13.8); Immature Granulocyte Percent A 0.4 % (0.0-0.0); Lymphocytes Absolute Auto 1.14 K/mm3 (1.10-4.50); Mean Corpuscular HGB Conc 31.7 g/dL (32-36); Mean Corpuscular Hemoglobin 28.3 pg (27.0-31.0); Mean Corpuscular Volume 89.2 fL (78.0-102.0); Nucleated Red Blood Cells Absolute Auto 0.00 K/mm3 (0.00-0.00); Nucleated Red Blood Cells Perc 0.0 % (0-0.0); Platelet Count Result 205 K/mm3 (150-420); Red Blood Count 4.17 M/mm3 (4.20-5.40); White Blood Count 4.7 K/mm3 (4.8-10.8)
[2025-05-20 11:40] LABS: Alanine Aminotransferase 18 U/L (6-35); Albumin Level 4.3 g/dL (3.5-5.1); Alkaline Phosphatase 90 U/L (38-126); Anion Gap 9 mmol/L (4-12); Aspartate Amino Transferase 25 U/L (14-36); Bilirubin,Total 0.4 mg/dL (0.2-1.3); Blood Urea Nitrogen 15 mg/dL (7-17); Calcium 9.9 mg/dL (8.4-10.2); Carbon Dioxide 32 mmol/L (22-30); Chloride 100 mmol/L (98-107); Estimated Glomerular Filt Rate > 60; Glucose 153 mg/dL (65-110); Osmolality Calculated 295 mOsm/kg (285-295); Potassium 4.8 mmol/L (3.4-5.0); Sodium 141 mmol/L (137-145); Total Protein 7.0 g/dL (6.3-8.2)
[2025-05-20 13:24] LABS: Immunoglobulin A 295 mg/dL (70-400); Immunoglobulin G 1145 mg/dL (700-1600); Immunoglobulin M 86 mg/dL (40-230)
[2025-05-21 13:09] LABS: Albumin 3.6 g/dL (2.9-4.4); Alpha-1-Globulin 0.2 g/dL (0.0-0.4); Alpha-2-Globulin 0.8 g/dL (0.4-1.0); Gamma Globulin 1.1 g/dL (0.4-1.8)
[2025-05-21 14:08] LABS: Free Lambda Lt Chains, Serum 20.2 mg/L (5.7-26.3); Kappa/Lambda Ratio, Serum 1.87 (0.26-1.65)
== END 2025-05-20 10:43 | disposition home or self-care (01) ==
LOC: CHSLAB 10:45
PROVIDERS: PCP Internal Medicine; Visit Provider Internal Medicine Hematology & Oncology
DX: D72.9 Disorder of white blood cells, unspecified (principal)
CPT/HCPCS: 36415; 80053; 82784; 83521; 84155; 84165; 85025

== ENCOUNTER 2025-06-11 07:11 | Outpatient (CLI) | payer MEDICARE, SELFPAY ==
[2025-06-11 07:50] LABS: Hemoglobin A1C 7.3 % (<5.7)
[2025-06-11 08:03] LABS: Alanine Aminotransferase 18 U/L (6-35); Albumin Level 4.4 g/dL (3.5-5.1); Alkaline Phosphatase 83 U/L (38-126); Anion Gap 8 mmol/L (4-12); Aspartate Amino Transferase 28 U/L (14-36); Bilirubin,Total 0.8 mg/dL (0.2-1.3); Blood Urea Nitrogen 19 mg/dL (7-17); Calcium 10.2 mg/dL (8.4-10.2); Carbon Dioxide 28 mmol/L (22-30); Chloride 103 mmol/L (98-107); Cholesterol 136 mg/dL (0-200); Estimated Glomerular Filt Rate > 60; Glucose 147 mg/dL (65-110); HDL Direct 67 mg/dL; Osmolality Calculated 293 mOsm/kg (285-295); Potassium 4.4 mmol/L (3.4-5.0); Sodium 139 mmol/L (137-145); Total Protein 7.1 g/dL (6.3-8.2); Triglycerides 98 mg/dL (<150)
[2025-06-11 08:08] LABS: MALB Creatinine Ratio 44.0 mg/g (0-30)
[2025-06-11 08:33] LABS: Thyroid Stimulating Hormone 2.420 uIU/mL (0.465-4.680)
== END 2025-06-11 07:12 | disposition home or self-care (01) ==
LOC: CHSLAB 07:13
PROVIDERS: PCP Internal Medicine; Visit Provider Internal Medicine
DX: I10 Essential (primary) hypertension (principal); E11.9 Type 2 diabetes mellitus without complications; E78.5 Hyperlipidemia, unspecified
CPT/HCPCS: 36415; 80053; 80061; 82043; 83036; 84443